=== PATIENT | female | born 1965 | race Caucasian/White ===

== ENCOUNTER 2019-09-19 19:19 | Emergency (ER) | payer MEDICAID ==
[~2019-09-19] VITALS: Ht 162.6 cm; Wt 90.7 kg
[2019-09-19 19:22] VITALS: Ht 162.6 cm; Wt 90.7 kg
[2019-09-19 23:26] VITALS: BP 146/89
== END 2019-09-19 23:26 | disposition home or self-care (01) ==
LOC: ED 19:19
DX: S61.511A Laceration without foreign body of right wrist, initial encounter (principal); I10 Essential (primary) hypertension; Z98.890 Other specified postprocedural states; W26.8XXA Contact with other sharp object(s), not elsewhere classified, initial encounter; Y93.89 Activity, other specified; Y92.89 Other specified places as the place of occurrence of the external cause; Y99.8 Other external cause status
CPT/HCPCS: J2001

== ENCOUNTER 2019-09-30 09:06 | Emergency (ER) | payer MEDICAID ==
[~2019-09-30] VITALS: Ht 165.1 cm; Wt 90.5 kg
[2019-09-30 11:04] VITALS: BP 167/81
== END 2019-09-30 11:28 | disposition home or self-care (01) ==
LOC: ED 09:06
DX: S61.511D Laceration without foreign body of right wrist, subsequent encounter (principal); X58.XXXD Exposure to other specified factors, subsequent encounter